=== PATIENT | female | born 1965 | race Caucasian/White ===

== ENCOUNTER 2023-06-08 08:26 | Outpatient (CLI) | payer OTHER, SELFPAY ==
--- NOTE | 2023-06-08 10:19 | W.ANESCHARGE ---
Anesthesia Charges Start Date/Time Anesthesia Start Date: 06/08/23 Anesthesia Start Time: 09:42 Stop Date/Time Anesthesia Stop Date: 06/08/23 Anesthesia Stop Time: 10:16
== END 2023-06-08 08:27 | disposition home or self-care (01) ==
LOC: OP CLINIC 08:31
PROVIDERS: PCP Nurse Practitioner Gerontology; Visit Provider Internal Medicine
DX: Z12.11 Encounter for screening for malignant neoplasm of colon (principal)
CPT/HCPCS: 00812; 45378; J2704